=== PATIENT | female | born 1940 | race Caucasian/White ===

== ENCOUNTER 2022-01-21 08:53 | Outpatient (CLI) | payer MEDICARE, BC, OTHER | END 2022-01-21 08:54 | disposition home or self-care (01) | LOC: CSHMAMMO 08:53 | PROVIDERS: ATTEND Family Medicine | DX: Z08 Encounter for follow-up examination after completed treatment for malignant neoplasm (principal); Z85.3 Personal history of malignant neoplasm of breast | CPT/HCPCS: 77066; G0279 ==

== ENCOUNTER 2022-02-01 14:05 | Emergency (ER) | payer MEDICARE, BC, OTHER ==
[2022-02-01 14:33] LABS: #Basophils 0.1 10x3/uL (0.0-0.2); #Eosinphils 0.3 10x3/uL (0.0-0.5); #Monocytes 0.5 10x3/uL (0.0-1.1); #Neutrophils 6.5 10x3/uL (1.5-8.4); %Basophils 0.7 % (0.0-2.0); %Eosinophils 3.9 % (0.0-6.0); %Lymphocytes 14.1 % (18.0-47.0); %Monocytes 6.2 % (0.0-10.0); %Neutrophils 74.8 % (40.0-75.0); Hemoglobin 12.5 g/dL (12.0-15.5); Mean Corpuscular HGB CONC 33.8 g/dL (32.0-36.0); Mean Corpuscular Hemoglobin 31.8 pg (27.0-33.0); Mean Corpuscular Volume 94.1 fl (81.6-98.3); Platelet Count 256 10x3/uL (150-450); RBC Distribution Width 13.8 % (11.5-14.5); Red Blood Cell (RBC) Count 3.93 10x6/uL (3.90-5.03); White Blood Cell (WBC) Count 8.7 10x3/uL (3.5-10.5)
[2022-02-01 14:49] LABS: ALT (SGPT) 20 U/L (8-55); AST (SGOT) 25 U/L (5-34); Albumin 4.5 g/dL (3.4-4.8); Alkaline Phosphatase 61 U/L (40-110); Anion Gap 16 mmol/L (10-20); BUN (Urea Nitrogen) 29 mg/dL (9.8-20.1); Bilirubin, Total 0.5 mg/dL (0.2-1.2); CK (CPK) 209 U/L (29-168); Calc. Creatinine Clearance 0 mL/min (70-130); Calcium 7.7 mg/dL (7.8-10.44); Carbon Dioxide 25 mmol/L (23-31); Chloride 107 mmol/L (98-107); Estimated GFR 66; Globulin 2.9 g/dL (2.4-3.5); Glucose 114 mg/dL (83-110); Lipase 28 U/L (8-78); Magnesium 2.2 mg/dL (1.6-2.6); Potassium 4.2 mmol/L (3.5-5.1); Protein, Total 7.4 g/dL (5.8-8.1); Sodium 144 mmol/L (136-145)
[2022-02-01] MEDS ORDERED: Carvedilol 3.125 MG TAB ONE (17:27)
== END 2022-02-01 18:35 | disposition short-term general hospital (02) ==
LOC: CSHERS 14:05
DX: R55 Syncope and collapse (principal); E78.5 Hyperlipidemia, unspecified; I10 Essential (primary) hypertension
CPT/HCPCS: 36415; 71045; 71275; 80053; 82550; 83605; 83690; 83735; 84484; 85025; 85379; 93005; 94760; 96360

== ENCOUNTER 2022-06-30 09:08 | Outpatient (CLI) | payer MEDICARE, BC, OTHER | END 2022-06-30 09:09 | disposition home or self-care (01) | LOC: CSHMAMMO 09:08 | PROVIDERS: ATTEND Family Medicine | DX: Z13.820 Encounter for screening for osteoporosis (principal); Z78.0 Asymptomatic menopausal state | CPT/HCPCS: 77080 ==

== ENCOUNTER 2022-11-19 08:29 | Outpatient (CLI) | payer MEDICARE, BC, OTHER ==
[2022-11-19] MEDS ORDERED: Magnevist 469MG/ML 20 ML VIAL ONE ×2 (12:12)
== END 2022-11-19 08:30 | disposition home or self-care (01) ==
LOC: CSHMRI 08:29
PROVIDERS: ATTEND Psychiatry & Neurology Neurology
DX: R55 Syncope and collapse (principal); Q28.3 Other malformations of cerebral vessels; I67.9 Cerebrovascular disease, unspecified; I65.01 Occlusion and stenosis of right vertebral artery
CPT/HCPCS: 70544; 70549; 70553; 82565; A9579

== ENCOUNTER 2022-12-05 07:54 | Outpatient (CLI) | payer MEDICARE, BC ==
[2022-12-05] MEDS ORDERED: Iopamidol 370 76% 100 ML VIAL ONE (10:38)
== END 2022-12-05 07:55 | disposition home or self-care (01) ==
LOC: CSHCT 07:54
PROVIDERS: ATTEND Psychiatry & Neurology Neurology
DX: R93.89 Abnormal findings on diagnostic imaging of other specified body structures (principal); I77.9 Disorder of arteries and arterioles, unspecified
CPT/HCPCS: 70496; 70498; 82565; Q9967

== ENCOUNTER 2022-12-27 09:59 | Emergency (ER) | payer MEDICARE, BC ==
[2022-12-27] MEDS ORDERED: Lidocaine 5% Patch TD SCH (11:30)
[2022-12-27] MEDS ORDERED: Lidocaine 4% Patch TD SCH (11:30)
== END 2022-12-27 11:37 | disposition home or self-care (01) ==
LOC: CSHERS 09:59
DX: S23.41XA Sprain of ribs, initial encounter (principal); I10 Essential (primary) hypertension; E78.5 Hyperlipidemia, unspecified; W18.30XA Fall on same level, unspecified, initial encounter

== ENCOUNTER 2022-12-29 10:48 | Inpatient (IN) | payer MEDICARE, BC ==
[~2022-12-29 10:48] MED LIST: Iopamidol 370 76% 100 ML VIAL ONE
[2022-12-29] MEDS ORDERED: Ketorolac Tromethamine 30 MG/ML VIAL ONE (11:28)
[2022-12-29 11:41] LABS: #Eosinphils 0.1 10x3/uL (0.0-0.5); #Monocytes 0.8 10x3/uL (0.0-1.1); #Neutrophils 6.4 10x3/uL (1.5-8.4); %Basophils 0.4 % (0.0-2.0); %Eosinophils 1.7 % (0.0-6.0); %Lymphocytes 10.5 % (18.0-47.0); %Monocytes 9.5 % (0.0-10.0); %Neutrophils 77.5 % (40.0-75.0); Hemoglobin 11.5 g/dL (12.0-15.5); Mean Corpuscular HGB CONC 33.2 g/dL (32.0-36.0); Mean Corpuscular Volume 93.3 fl (81.6-98.3); Mean Platelet Volume 10.2 fl (7.4-10.4); Platelet Count 214 10x3/uL (150-450); RBC Distribution Width 13.4 % (11.5-14.5); Red Blood Cell (RBC) Count 3.71 10x6/uL (3.90-5.03); White Blood Cell (WBC) Count 8.2 10x3/uL (3.5-10.5)
[2022-12-29 11:56] LABS: ALT (SGPT) 15 U/L (8-55); AST (SGOT) 24 U/L (5-34); Albumin 3.9 g/dL (3.4-4.8); Alkaline Phosphatase 66 U/L (40-110); Anion Gap 18 mmol/L (10-20); BUN (Urea Nitrogen) 24 mg/dL (9.8-20.1); Bilirubin, Total 0.4 mg/dL (0.2-1.2); Calc. Creatinine Clearance 0 mL/min (70-130); Carbon Dioxide 23 mmol/L (23-31); Chloride 105 mmol/L (98-107); Estimated GFR 50; Globulin 2.4 g/dL (2.4-3.5); Glucose 100 mg/dL (83-110); Potassium 4.6 mmol/L (3.5-5.1); Protein, Total 6.3 g/dL (5.8-8.1); Sodium 141 mmol/L (136-145)
[2022-12-29 11:59] LABS: Calcium 6.7 mg/dL (7.8-10.44)
[2022-12-29] MEDS ORDERED: CALCIUM GLUC 1 GM/NS 50 ML 1 GM in Premix Bag 1 BAG IVPB SCH (12:30)
[2022-12-29 12:40] LABS: Magnesium 2.1 mg/dL (1.6-2.6)
[2022-12-29] MEDS ORDERED: Bisacodyl 10 MG SUPP PR PRN (17:26)
[2022-12-29] MEDS ORDERED: Bisacodyl 5 MG TAB PO PRN (17:26)
[2022-12-29] MEDS ORDERED: Senokot S 8.6-50 MG TAB PO PRN (17:26)
[2022-12-29] MEDS ORDERED: Calcium Gluc 4.6 MEQ/10 ML (100 MG/ML) SLOW IVP SCH (18:00)
[2022-12-29 18:20] LABS: Phosphorus 6.5 mg/dL (2.3-4.7)
[2022-12-29 18:27] LABS: Troponin I 0.014 ng/mL (< 0.028)
[2022-12-29 18:37] VITALS: BMI 27.6
[2022-12-29] MEDS: Carvedilol 3.125 MG TAB PO SCH ×2 (20:43→20:45)
[2022-12-29] MEDS: Acetaminophen 500 MG TAB PO PRN (21:29)
[2022-12-29 22:40] LABS: Troponin I Less than 0.010 ng/mL (< 0.028)
[2022-12-30] MEDS: Levothyroxine Sodium 112 MCG TAB PO SCH (05:31)
[2022-12-30 05:56] LABS: Anion Gap 16 mmol/L (10-20); BUN (Urea Nitrogen) 25 mg/dL (9.8-20.1); Calc. Creatinine Clearance 62 mL/min (70-130); Calcium 7.5 mg/dL (7.8-10.44); Carbon Dioxide 26 mmol/L (23-31); Chloride 103 mmol/L (98-107); Estimated GFR 72; Glucose 105 mg/dL (83-110); Potassium 4.1 mmol/L (3.5-5.1); Sodium 141 mmol/L (136-145)
[2022-12-30 06:03] LABS: #Basophils 0.1 10x3/uL (0.0-0.2); #Eosinphils 0.3 10x3/uL (0.0-0.5); #Monocytes 0.7 10x3/uL (0.0-1.1); #Neutrophils 4.2 10x3/uL (1.5-8.4); %Basophils 0.9 % (0.0-2.0); %Eosinophils 4.8 % (0.0-6.0); %Monocytes 10.8 % (0.0-10.0); %Neutrophils 61.2 % (40.0-75.0); Hemoglobin 12.4 g/dL (12.0-15.5); Mean Corpuscular HGB CONC 33.3 g/dL (32.0-36.0); Mean Corpuscular Hemoglobin 30.8 pg (27.0-33.0); Mean Corpuscular Volume 92.5 fl (81.6-98.3); Mean Platelet Volume 10.3 fl (7.4-10.4); Platelet Count 254 10x3/uL (150-450); RBC Distribution Width 13.4 % (11.5-14.5); Red Blood Cell (RBC) Count 4.02 10x6/uL (3.90-5.03); White Blood Cell (WBC) Count 6.8 10x3/uL (3.5-10.5)
[2022-12-30] MEDS: Acetaminophen 500 MG TAB PO PRN ×3 (06:10→22:18)
[2022-12-30] MEDS: Calcium Carbonate 600 MG + Vit D TAB PO SCH ×2 (09:12→16:54)
[2022-12-30] MEDS: Carvedilol 3.125 MG TAB PO SCH ×3 (09:12→20:46)
[2022-12-30] MEDS ORDERED: Ketorolac Tromethamine 30 MG/ML VIAL IVP SCH (16:15)
[2022-12-31 05:44] LABS: #Basophils 0.1 10x3/uL (0.0-0.2); #Eosinphils 0.2 10x3/uL (0.0-0.5); #Monocytes 0.6 10x3/uL (0.0-1.1); #Neutrophils 4.4 10x3/uL (1.5-8.4); %Basophils 0.7 % (0.0-2.0); %Eosinophils 3.6 % (0.0-6.0); %Lymphocytes 20.6 % (18.0-47.0); %Monocytes 9.3 % (0.0-10.0); %Neutrophils 65.7 % (40.0-75.0); Hemoglobin 12.4 g/dL (12.0-15.5); Mean Corpuscular HGB CONC 33.3 g/dL (32.0-36.0); Mean Platelet Volume 10.4 fl (7.4-10.4); Platelet Count 243 10x3/uL (150-450); RBC Distribution Width 13.3 % (11.5-14.5); White Blood Cell (WBC) Count 6.8 10x3/uL (3.5-10.5)
[2022-12-31 05:57] LABS: Anion Gap 18 mmol/L (10-20); BUN (Urea Nitrogen) 23 mg/dL (9.8-20.1); Calc. Creatinine Clearance 65 mL/min (70-130); Calcium 8.2 mg/dL (7.8-10.44); Carbon Dioxide 24 mmol/L (23-31); Chloride 102 mmol/L (98-107); Estimated GFR 75; Glucose 104 mg/dL (83-110); Potassium 4.3 mmol/L (3.5-5.1); Sodium 140 mmol/L (136-145)
[2022-12-31] MEDS: Acetaminophen 500 MG TAB PO PRN (07:19)
[2022-12-31] MEDS: Levothyroxine Sodium 112 MCG TAB PO SCH (07:20)
[2022-12-31] MEDS: Calcium Carbonate 600 MG + Vit D TAB PO SCH ×2 (09:12→18:28)
[2022-12-31] MEDS: Carvedilol 3.125 MG TAB PO SCH ×3 (09:12→15:00)
[2022-12-31] MEDS ORDERED: Lidocaine 1% (PF) 30 ML VIAL ONE ×2 (10:55→14:00)
[2022-12-31] MEDS ORDERED: Gentamicin 80 MG/2 ML VIAL ONE (10:56)
[2022-12-31] MEDS ORDERED: CEFAZOLIN 1 GM VIAL ONE ×3 (10:56→12:45)
[2022-12-31] MEDS ORDERED: fentaNYL 50 mcg/mL 1 mL Vial ONE (13:58)
[2022-12-31] MEDS ORDERED: Midazolam HCl 2 mg/2 ml Vial ONE ×3 (13:59→14:40)
[2022-12-31] MEDS ORDERED: Acetaminophen 650 MG Suppository PR SCH (14:30)
[2022-12-31] MEDS: Acetaminophen 500 MG TAB PO SCH ×2 (14:30→21:17)
[2022-12-31] MEDS ORDERED: Iopamidol 300 61% 100 ML VIAL FS ONE (15:17)
[2022-12-31] MEDS ORDERED: Acetaminophen 325 MG TAB PO PRN (15:19)
[2022-12-31] MEDS: Morphine IR Tab 15 MG TAB PO PRN (18:28)
[2022-12-31] MEDS: Carvedilol 6.25 MG TAB PO SCH (18:28)
[2022-12-31] MEDS: Diclofenac 1% 100 GM GEL TP SCH ×2 (18:32→21:55)
[2022-12-31] MEDS: Sodium Chloride 0.9% 1,000 ML IV SCH (18:34)
[2022-12-31] MEDS ORDERED: Atorvastatin Calcium 10 MG TAB PO SCH (21:00)
[2022-12-31] MEDS: Cephalexin 250 MG CAP PO SCH (21:16)
[2023-01-01 03:32] LABS: #Eosinphils 0.2 10x3/uL (0.0-0.5); #Monocytes 0.7 10x3/uL (0.0-1.1); #Neutrophils 5.9 10x3/uL (1.5-8.4); %Basophils 0.5 % (0.0-2.0); %Eosinophils 2.3 % (0.0-6.0); %Lymphocytes 12.7 % (18.0-47.0); %Monocytes 9.1 % (0.0-10.0); %Neutrophils 75.1 % (40.0-75.0); Hemoglobin 11.7 g/dL (12.0-15.5); Mean Corpuscular HGB CONC 32.8 g/dL (32.0-36.0); Mean Corpuscular Hemoglobin 30.5 pg (27.0-33.0); Mean Corpuscular Volume 93.2 fl (81.6-98.3); Mean Platelet Volume 10.2 fl (7.4-10.4); Platelet Count 239 10x3/uL (150-450); RBC Distribution Width 13.3 % (11.5-14.5); Red Blood Cell (RBC) Count 3.83 10x6/uL (3.90-5.03); White Blood Cell (WBC) Count 7.8 10x3/uL (3.5-10.5)
[2023-01-01 03:33] LABS: Anion Gap 16 mmol/L (10-20); BUN (Urea Nitrogen) 26 mg/dL (9.8-20.1); Calc. Creatinine Clearance 72 mL/min (70-130); Calcium 7.7 mg/dL (7.8-10.44); Carbon Dioxide 25 mmol/L (23-31); Chloride 103 mmol/L (98-107); Estimated GFR 85; Glucose 122 mg/dL (83-110); Potassium 4.4 mmol/L (3.5-5.1); Sodium 140 mmol/L (136-145)
[2023-01-01] MEDS: Acetaminophen 500 MG TAB PO SCH ×3 (04:40→15:41)
[2023-01-01] MEDS: Sodium Chloride 0.9% 1,000 ML IV SCH ×2 (04:46→11:30)
[2023-01-01] MEDS: Levothyroxine Sodium 112 MCG TAB PO SCH (06:18)
[2023-01-01] MEDS: Morphine IR Tab 15 MG TAB PO PRN (06:47)
[2023-01-01] MEDS: Cephalexin 250 MG CAP PO SCH (08:55)
[2023-01-01] MEDS: Carvedilol 6.25 MG TAB PO SCH ×2 (08:55→17:20)
[2023-01-01] MEDS: Calcium Carbonate 600 MG + Vit D TAB PO SCH ×2 (08:58→17:20)
[2023-01-01] MEDS: Diclofenac 1% 100 GM GEL TP SCH ×3 (08:58→17:26)
[2023-01-01] MEDS ORDERED: Anastrozole 1 MG TAB PO SCH (09:00)
[2023-01-01] MEDS ORDERED: Aspirin 81 mg Enteric Coated Tablet PO SCH (09:00)
[2023-01-01] MEDS ORDERED: Ondansetron PF 4 MG/2 ML Vial IVP PRN (12:46)
[2023-01-01] MEDS ORDERED: Ondansetron PF 4 MG/2 ML Vial IVP SCH (13:00)
[2023-01-01] MEDS ORDERED: Cephalexin 500 MG CAP PO SCH (16:15)
[2023-01-01 18:48] VITALS: BP 179/77; TEMP 98
== END 2023-01-01 18:00 | disposition home or self-care (01) | DRG 243 ==
LOC: CSHERS 10:48 → INTOOBSV 18:00 → CSHTELE 18:00 → OBSVTOIN 12-30 16:13
PROVIDERS: ADMIT Family Medicine; ATTEND Family Medicine
PROC: 0JH606Z Insertion of Pacemaker, Dual Chamber into Chest Subcutaneous Tissue and Fascia, Open Approach (ICD-10-PCS; principal; 2022-12-31)
PROC: 02H63JZ Insertion of Pacemaker Lead into Right Atrium, Percutaneous Approach (ICD-10-PCS; 2022-12-31)
PROC: 02HK3JZ Insertion of Pacemaker Lead into Right Ventricle, Percutaneous Approach (ICD-10-PCS; 2022-12-31)
DX: I49.5 Sick sinus syndrome (principal); S22.41XA Multiple fractures of ribs, right side, initial encounter for closed fracture; I10 Essential (primary) hypertension; Z79.82 Long term (current) use of aspirin; Z79.899 Other long term (current) drug therapy; R55 Syncope and collapse; Z96.651 Presence of right artificial knee joint; Z90.710 Acquired absence of both cervix and uterus; Z90.89 Acquired absence of other organs; E83.51 Hypocalcemia; I65.23 Occlusion and stenosis of bilateral carotid arteries; E78.5 Hyperlipidemia, unspecified; E03.9 Hypothyroidism, unspecified; W18.39XA Other fall on same level, initial encounter; G24.9 Dystonia, unspecified; I44.7 Left bundle-branch block, unspecified
CPT/HCPCS: 33208; 36415; 70450; 71045; 71275; 80048; 80053; 82306; 83735; 83970; 84100; 84443; 84484; 85025; 93005; 93010; 93306; 94760; 96365; 96366; 96375; 99152; 99153; C1785; C1898; J0612; J0613; J0690; J1580; J1650; J1885; J2001; J2250; J2405; J3010; J7050; Q9967

== ENCOUNTER 2023-07-24 18:24 | Inpatient (IN) | payer MEDICARE, BC ==
[2023-07-24] MEDS ORDERED: methylPREDNISolone Sod Succ/PF 125 MG/2 ML VIAL ONE (18:48)
[2023-07-24 18:51] LABS: #Basophils 0.1 10x3/uL (0.0-0.2); #Eosinphils 0.4 10x3/uL (0.0-0.5); #Monocytes 0.7 10x3/uL (0.0-1.1); #Neutrophils 5.1 10x3/uL (1.5-8.4); %Basophils 0.8 % (0.0-2.0); %Eosinophils 3.9 % (0.0-6.0); %Lymphocytes 30.9 % (18.0-47.0); %Monocytes 7.6 % (0.0-10.0); %Neutrophils 56.6 % (40.0-75.0); Hematocrit 45.6 % (34.9-44.5); Hemoglobin 15.3 g/dL (12.0-15.5); Mean Corpuscular HGB CONC 33.6 g/dL (32.0-36.0); Mean Corpuscular Hemoglobin 30.4 pg (27.0-33.0); Mean Corpuscular Volume 90.7 fl (81.6-98.3); Mean Platelet Volume 10.5 fl (7.4-10.4); Platelet Count 266 10x3/uL (150-450); RBC Distribution Width 13.5 % (11.5-14.5); Red Blood Cell (RBC) Count 5.03 10x6/uL (3.90-5.03); White Blood Cell (WBC) Count 8.9 10x3/uL (3.5-10.5)
[2023-07-24 19:03] LABS: ALT (SGPT) 26 U/L (8-55); AST (SGOT) 39 U/L (5-34); Albumin 4.7 g/dL (3.4-4.8); Alkaline Phosphatase 96 U/L (40-110); Anion Gap 19 mmol/L (10-20); BUN (Urea Nitrogen) 25 mg/dL (9.8-20.1); Bilirubin, Total 0.4 mg/dL (0.2-1.2); Calc. Creatinine Clearance 0 mL/min (70-130); Calcium 7.7 mg/dL (7.8-10.44); Carbon Dioxide 25 mmol/L (23-31); Chloride 103 mmol/L (98-107); Estimated GFR 70; Globulin 2.8 g/dL (2.4-3.5); Glucose 159 mg/dL (83-110); Potassium 3.9 mmol/L (3.5-5.1); Protein, Total 7.5 g/dL (5.8-8.1); Sodium 143 mmol/L (136-145)
[2023-07-24 19:07] LABS: Troponin I Less than 0.010 ng/mL (< 0.028)
[2023-07-24] MEDS ORDERED: Albuterol 2.5 MG (0.5 mL) NEB ONE (19:17)
[2023-07-24] MEDS ORDERED: Albuterol 2.5 MG (3 mL) NEB ONE (19:17)
[2023-07-24] MEDS ORDERED: Furosemide 40 MG (4 mL) VIAL ONE (19:26)
[2023-07-24] MEDS ORDERED: Nitroglycerin 2% Ointment 1 INCH/1 GM Packet ONE (19:27)
[2023-07-24] MEDS ORDERED: Cefepime 1 GM VIAL ONE (19:27)
[2023-07-24 19:46] LABS: Influenza A by NAA Not Detected (NotDetected); Influenza B by NAA Not Detected (NotDetected); SARS-CoV-2 NAA Rapid Test Not Detected (NotDetected)
[2023-07-24 21:34] LABS: Magnesium 2.1 mg/dL (1.6-2.6)
[2023-07-24 21:42] VITALS: BMI 30.5
[2023-07-24] MEDS: Azithromycin 500 MG in Sodium Chloride 0.9% 250 ML 250 ML IVPB SCH (22:15)
[2023-07-24 22:43] LABS: Troponin I 0.791 ng/mL (< 0.028)
[2023-07-24] MEDS: Nitroglycerin 2% Ointment 1 INCH/1 GM Packet TOP SCH (23:00)
[2023-07-24] MEDS: Potassium Chloride 20 MEQ in Premix 1 BAG IVPB SCH (23:00)
[2023-07-24] MEDS: Enalaprilat Dihydrate 1.25 MG/ML VIAL SLOW IVP SCH (23:15)
[2023-07-24] MEDS: Furosemide 40 MG (4 mL) VIAL SLOW IVP SCH (23:24)
[2023-07-24 23:42] LABS: PTT 27.6 sec (22.0-33.0); Prothrombin Time 10.9 sec (9.5-12.1)
[2023-07-25] MEDS: Enoxaparin 80 MG (0.8 mL) SYRINGE SC SCH (00:29)
[2023-07-25] MEDS: Aspirin Chewable 81 MG TAB PO SCH (00:29)
[2023-07-25 01:32] LABS: Troponin I 1.347 ng/mL (< 0.028)
[2023-07-25 03:16] LABS: #Neutrophils 6.9 10x3/uL (1.5-8.4); %Basophils 0.3 % (0.0-2.0); %Lymphocytes 8.5 % (18.0-47.0); %Monocytes 0.4 % (0.0-10.0); %Neutrophils 90.3 % (40.0-75.0); Hematocrit 41.4 % (34.9-44.5); Hemoglobin 14.1 g/dL (12.0-15.5); Mean Corpuscular HGB CONC 34.1 g/dL (32.0-36.0); Mean Platelet Volume 10.5 fl (7.4-10.4); Platelet Count 215 10x3/uL (150-450); RBC Distribution Width 13.3 % (11.5-14.5); Red Blood Cell (RBC) Count 4.55 10x6/uL (3.90-5.03); White Blood Cell (WBC) Count 7.7 10x3/uL (3.5-10.5)
[2023-07-25 03:53] LABS: Anion Gap 20 mmol/L (10-20); BUN (Urea Nitrogen) 25 mg/dL (9.8-20.1); Calc. Creatinine Clearance 65 mL/min (70-130); Calcium 7.7 mg/dL (7.8-10.44); Carbon Dioxide 27 mmol/L (23-31); Chloride 99 mmol/L (98-107); Cholesterol 156 mg/dl (< 200 Desired); Estimated GFR 68; Glucose 174 mg/dL (83-110); HDL Cholesterol 77 mg/dL (>60 Neg Risk); LDL Cholesterol, Calculated 73 mg/dL; Potassium 4.3 mmol/L (3.5-5.1); Sodium 142 mmol/L (136-145); Triglycerides 31 mg/dL (Less than 150)
[2023-07-25] MEDS: Furosemide 40 MG (4 mL) VIAL SLOW IVP SCH (06:41)
[2023-07-25] MEDS: cefTRIAXone\\ROCEPHIN 1 GM in Sodium Chloride 0.9% 100 ML IVPB SCH (06:42)
[2023-07-25] MEDS: Aspirin 81 mg Enteric Coated Tablet PO SCH (08:51)
[2023-07-25] MEDS ORDERED: Enoxaparin 40 MG (0.4 mL) SYRINGE SC SCH (09:00)
[2023-07-25] MEDS: Anastrozole 1 MG TAB PO SCH (13:41)
[2023-07-25] MEDS ORDERED: Carvedilol 6.25 MG TAB PO SCH (17:00)
[2023-07-25] MEDS: Calcium Carbonate 600 MG + Vit D TAB PO SCH (17:11)
[2023-07-25] MEDS: Carvedilol 3.125 MG TAB PO SCH (17:11)
[2023-07-25] MEDS: Atorvastatin Calcium 20 MG TAB PO SCH (20:32)
[2023-07-26] MEDS: Levothyroxine Sodium 112 MCG TAB PO SCH (05:44)
[2023-07-26 05:55] LABS: Anion Gap 14 mmol/L (10-20); BUN (Urea Nitrogen) 38 mg/dL (9.8-20.1); Calc. Creatinine Clearance 67 mL/min (70-130); Carbon Dioxide 31 mmol/L (23-31); Chloride 99 mmol/L (98-107); Estimated GFR 70; Glucose 111 mg/dL (83-110); Potassium 3.6 mmol/L (3.5-5.1); Sodium 140 mmol/L (136-145)
[2023-07-26] MEDS: Lisinopril 2.5 MG TAB PO SCH ×2 (08:45→11:19)
[2023-07-26] MEDS: Anastrozole 1 MG TAB PO SCH (08:45)
[2023-07-26] MEDS ORDERED: Communication Order-Pharmacy FS SCH (11:15)
[2023-07-26 12:31] LABS: Critical Call Chem Troponin I NUR.MDF2 AT 1231; Troponin I 0.609 ng/mL (< 0.028)
[2023-07-26] MEDS: Carvedilol 6.25 MG TAB PO SCH (17:08)
[2023-07-27 06:25] LABS: #Basophils 0.1 10x3/uL (0.0-0.2); #Eosinphils 0.2 10x3/uL (0.0-0.5); #Monocytes 0.7 10x3/uL (0.0-1.1); #Neutrophils 3.8 10x3/uL (1.5-8.4); %Basophils 0.7 % (0.0-2.0); %Eosinophils 2.8 % (0.0-6.0); %Lymphocytes 29.8 % (18.0-47.0); %Monocytes 10.9 % (0.0-10.0); %Neutrophils 55.7 % (40.0-75.0); Hemoglobin 13.5 g/dL (12.0-15.5); Mean Corpuscular HGB CONC 33.8 g/dL (32.0-36.0); Mean Corpuscular Volume 91.7 fl (81.6-98.3); Platelet Count 193 10x3/uL (150-450); RBC Distribution Width 13.9 % (11.5-14.5); Red Blood Cell (RBC) Count 4.36 10x6/uL (3.90-5.03); White Blood Cell (WBC) Count 6.8 10x3/uL (3.5-10.5)
[2023-07-27 06:32] LABS: PTT 27.3 sec (22.0-33.0); Prothrombin Time 10.8 sec (9.5-12.1)
[2023-07-27 06:48] LABS: ALT (SGPT) 20 U/L (8-55); AST (SGOT) 29 U/L (5-34); Albumin 3.8 g/dL (3.4-4.8); Alkaline Phosphatase 65 U/L (40-110); Anion Gap 16 mmol/L (10-20); BUN (Urea Nitrogen) 32 mg/dL (9.8-20.1); Bilirubin, Total 0.4 mg/dL (0.2-1.2); Calc. Creatinine Clearance 73 mL/min (70-130); Carbon Dioxide 26 mmol/L (23-31); Chloride 102 mmol/L (98-107); Estimated GFR 77; Globulin 2.5 g/dL (2.4-3.5); Glucose 97 mg/dL (83-110); Magnesium 2.2 mg/dL (1.6-2.6); Potassium 3.7 mmol/L (3.5-5.1); Protein, Total 6.3 g/dL (5.8-8.1); Sodium 140 mmol/L (136-145)
[2023-07-27 06:51] LABS: Calcium 6.9 mg/dL (7.8-10.44); Critical Call Chemistry NUR.RAM @0650
[2023-07-27] MEDS: Lisinopril 5 MG TAB PO SCH (07:44)
[2023-07-27] MEDS ORDERED: Lidocaine 1% (PF) 30 ML VIAL ONE (09:41)
[2023-07-27] MEDS ORDERED: Heparin 10,000 UNITS/ 10 ML VIAL ONE (09:41)
[2023-07-27] MEDS ORDERED: fentaNYL 50 mcg/mL 1 mL Vial ONE (10:00)
[2023-07-27] MEDS ORDERED: Midazolam HCl 2 mg/2 ml Vial ONE ×2 (10:00→10:22)
[2023-07-27] MEDS ORDERED: Atropine Sulfate 1 mg/1 ml Vial ONE (10:10)
[2023-07-27 16:26] VITALS: BP 114/68
[2023-07-27 17:22] VITALS: TEMP 97.8
== END 2023-07-27 17:10 | disposition home or self-care (01) | DRG 280 ==
LOC: CSHERS 18:24 → CSHIMCU 18:40 → CSHTELE 07-25 22:04
PROVIDERS: ADMIT Family Medicine; ATTEND Internal Medicine
PROC: 4A023N7 Measurement of Cardiac Sampling and Pressure, Left Heart, Percutaneous Approach (ICD-10-PCS; principal; 2023-07-27)
PROC: B2111ZZ Fluoroscopy of Multiple Coronary Arteries using Low Osmolar Contrast (ICD-10-PCS; 2023-07-27)
DX: I21.4 Non-ST elevation (NSTEMI) myocardial infarction (principal); I50.21 Acute systolic (congestive) heart failure; J96.01 Acute respiratory failure with hypoxia; E11.52 Type 2 diabetes mellitus with diabetic peripheral angiopathy with gangrene; E03.9 Hypothyroidism, unspecified; I25.10 Atherosclerotic heart disease of native coronary artery without angina pectoris; I77.9 Disorder of arteries and arterioles, unspecified; I11.0 Hypertensive heart disease with heart failure; I49.5 Sick sinus syndrome; E83.51 Hypocalcemia; E78.5 Hyperlipidemia, unspecified; J38.00 Paralysis of vocal cords and larynx, unspecified; Z79.82 Long term (current) use of aspirin; Z79.899 Other long term (current) drug therapy; Z79.891 Long term (current) use of opiate analgesic; Z85.3 Personal history of malignant neoplasm of breast; Z95.0 Presence of cardiac pacemaker; Z90.710 Acquired absence of both cervix and uterus
CPT/HCPCS: 36415; 71045; 80048; 80053; 80061; 83605; 83735; 83880; 84443; 84484; 85025; 85610; 85730; 87040; 93005; 93010; 93306; 93458; 94644; 94660; 94760; 94762; 96365; 96375; 99152; 99153; C1760; C1769; J0456; J0461; J0692; J0696; J1644; J1650; J1940; J2001; J2250; J2930; J3010; J3480; J3490; J7050; J7611

== ENCOUNTER 2024-03-01 13:00 | Outpatient (CLI) | payer MEDICARE, BC | END 2024-03-01 13:01 | disposition home or self-care (01) | LOC: CSHMAMMO 13:00 | PROVIDERS: ATTEND Internal Medicine Hematology & Oncology | DX: Z08 Encounter for follow-up examination after completed treatment for malignant neoplasm (principal); Z85.3 Personal history of malignant neoplasm of breast | CPT/HCPCS: 77066; G0279 ==